=== PATIENT | male | born 1960 | race Caucasian/White ===

== ENCOUNTER 2024-08-02 10:50 | Day surgery (SDC) | payer MEDICARE, BC ==
[~2024-08-02] VITALS: Ht 177.8 cm; Wt 103.4 kg
[~2024-08-02 10:50] MED LIST: NS 250 ML IV ONE
[2024-08-02 11:35] VITALS: TEMP 97.6
[2024-08-02 11:56] VITALS: BP 106/63; O2SAT 98
== END 2024-08-02 12:04 | disposition home or self-care (01) ==
LOC: M OPP 10:50
PROVIDERS: ATTEND Internal Medicine Gastroenterology
DX: Z12.11 Encounter for screening for malignant neoplasm of colon (principal); K57.30 Diverticulosis of large intestine without perforation or abscess without bleeding; K64.0 First degree hemorrhoids; Z86.0100 Personal history of colon polyps, unspecified; Z87.891 Personal history of nicotine dependence